=== PATIENT | male | born 2000 | race Caucasian/White ===

== ENCOUNTER 2021-06-21 04:03 | Emergency (ER) | payer OTHER ==
[2021-06-21] MEDS ORDERED: Ondansetron 4 MG/2 ML SDV IVPUSH ONE (04:26)
[2021-06-21] MEDS ORDERED: Dextrose 5%-Lactated Ringers 1,000 ML IV SCH (04:30)
[2021-06-21 05:09] LABS: BLOOD UREA NITROGEN,BUN 18 mg/dL (7.0-18.0); CARBON DIOXIDE,CO2 28.6 mmol/L (21.0-32.0); CHLORIDE,CL 101 mmol/L (98-107); GLUCOSE RANDOM 149 mg/dL (74-106); POTASSIUM,K 4.1 mmol/L (3.5-5.1); SODIUM,NA 137 mmol/L (136-148)
--- NOTE | 2021-06-21 05:18 | EDM.PDOC ---
ED HPI GENERAL MEDICAL PROBLEM - General Chief Complaint: Gastrointestinal Problem Stated Complaint: VOMITING Time Seen by Provider: 06/21/21 04:06 - History of Present Illness INITIAL COMMENTS - FREE TEXT/NARRATIVE: CHIEF COMPLAINT(S): Vomiting HISTORY OF PRESENT ILLNESS: This is a 20-year-old man without any significant past medical history who comes to the emergency department with a chief complaint of vomiting. Patient states that for approximately 4 to 5 hours now he has been experiencing vomiting which is nonbloody and nonbilious and diarrhea which is nonbloody and nonmelanotic after eating a burger at [email or web address]. He states that he started experience symptoms immediately after eating the burger approximately 15 to 20 minutes. He states that he is not able to keep any fluids down. He initially had some abdominal pain with vomiting but that is since improved. He denies any fever, chills, chest pain or shortness of breath. REVIEW OF SYSTEMS: Constitutional: Denies fever, chills. Eyes: Denies eye pain Ears, Nose, Mouth, & Throat: Denies earache Cardiovascular: Denies chest pain Respiratory: Denies shortness of breath Gastrointestinal: Positive for nausea, vomiting, diarrhea. Denies melena, hematochezia, hematemesis, bilious emesis, abdominal pain Genitourinary: Denies hematuria, dysuria Skin:Denies a rash MSK: Denies joint pain Neurological: Denies blurred vision Psychiatric: Denies depression PAST MEDICAL HISTORY: As per history of present illness and as reviewed below otherwise noncontributory. SURGICAL HISTORY: As per history of present illness and as reviewed below otherwise noncontributory. SOCIAL HISTORY: As per history of present illness and as reviewed below otherwise noncontributory. FAMILY HISTORY: As per history of present illness and as reviewed below otherwis e noncontributory. EXAMINATION OF ORGAN SYSTEMS/BODY AREAS: Constitutional: Blood pressure was 121/62, heart rate 120, respiratory rate 16 with an oxygen saturation 96% on room air. Temperature 36.8 General: Young man who does not appear to be in acute distress Psychiatric: Appropriate mood and affect. Eyes: No scleral icterus or conjunctival erythema ENMT: Dry mucous membranes. No pharyngeal erythema Cardiovascular: Regular, rate, and rhythm. No gallops, murmurs, or rubs. Bilateral upper extremity pulses symmetric and intact. No peripheral edema. No JVD. Respiratory: Lungs clear to auscultation bilaterally. No wheezes, rales, or rhonchi. Gastrointestinal: Soft, non-tender, non-distended. Normoactive bowel sounds no rebound or guarding Genitourinary: No suprapubic tenderness Musculoskeletal: Normal range of motion. Skin: No lesions or abrasions. Neurological: Alert, GCS 15 MEDICAL DECISION MAKING AND COURSE IN THE ED WITH INTERPRETATION/REVIEW OF DIAGNOSTIC STUDIES: This is a 20-year-old man without any significant past medical history who comes to the emergency department with dehydration secondary to food poisoning. At this time we will obtain basic labs including CBC, CMP and provide the patient with 1 L of D5 LR and 4 mg of IV Zofran. We will reevaluate for p.o. toleration. Laboratory: CBC reveals a mild leukocytosis of 11.39 otherwise unremarkable. CM P reveals hyperglycemia at 149 and hyperbilirubinemia at 1.2 otherwise unremarkable. After period of observation the patient was able to tolerate p.o. without any difficulty. I did discuss the importance of p.o. hydration at home. He is to return for any worsening symptoms. He was amenable to discharge and had no further questions DISPOSITION: The patient was discharged home in stable condition. The patient will follow up with primary care physician in 3 to 5 days CONDITION: Fair PROCEDURES: None FINAL IMPRESSION(S)/DIAGNOSES: 1. Acute vomiting secondary to food poisoning 2. Acute diarrhea secondary to food poisoning Keegan Mckeon M.D. - Related Data Allergies Allergy/AdvReac Type Severity Reaction Status Date / Time No Known Allergies Allergy Verified 06/21/21 04:17 Home Meds: Home Meds Finasteride 1 mg PO ASDIRECTED 06/21/21 [History] Ondansetron [Zofran ODT] 4 mg PO Q6H PRN #16 tab.dis 06/21/21 [Rx] Past Medical History - Past Health History Medical/Surgical History: Denies Medical/Surgical History - Infectious Disease History Infectious Disease History: Reports: Chicken Pox Social & Family History - Family History Family Medical History: No Pertinent Family History ED ROS GENERAL - Review of Systems Review Of Systems: See Below ED EXAM, GENERAL - Physical Exam Exam: See Below Course - Vital Signs Last Recorded V/S: Last Vital Signs Temp 36.8 C 06/21/21 04:18 Pulse 82 06/21/21 06:00 Resp 18 06/21/21 06:00 BP 111/52 L 06/21/21 06:00 Pulse Ox 100 06/21/21 06:00 - Orders/Labs/Meds Labs: Laboratory Tests 06/21/21 06/21/21 Range/Units 04:39 04:39 WBC 11.39 H (4.0-11.0) K/uL RBC 5.00 (4.50-5.90) M/uL Hgb 15.8 (13.0-17.0) g/dL Hct 44.3 (38.0-50.0) % MCV 88.6 (80.0-98.0) fL MCH 31.6 (27.0-32.0) pg MCHC 35.7 (31.0-37.0) g/dL RDW Std Deviation 41.3 (28.0-62.0) fl RDW Coeff of Edith 13 (11.0-15.0) % Plt Count 206 (150-400) K/uL MPV 9.90 (7.40-12.00) fL Neut % (Auto) 89.7 H (48.0-80.0) % Lymph % (Auto) 3.0 L (16.0-40.0) % [place] % (Auto) 7.1 (0.0-15.0) % Eos % (Auto) 0.1 (0.0-7.0) % Baso % (Auto) 0.1 (0.0-1.5) % Neut # (Auto) 10.2 H (1.4-5.7) K/uL Lymph # (Auto) 0.3 L (0.6-2.4) K/uL [place] # (Auto) 0.8 (0.0-0.8) K/uL Eos # (Auto) 0.0 (0.0-0.7) K/uL Baso # (Auto) 0.0 (0.0-0.1) K/uL Nucleated RBC % 0.0 /100WBC Nucleated RBCs # 0 K/uL Sodium 137 (136-148) mmol/L Potassium 4.1 (3.5-5.1) mmol/L Chloride 101 (98-107) mmol/L Carbon Dioxide 28.6 (21.0-32.0) mmol/L BUN 18 (7.0-18.0) mg/dL Creatinine 1.1 (0.8-1.3) mg/dL Est Cr Clr Drug Dosing TNP Estimated GFR (MDRD) > 60.0 ml/min Glucose 149 H (74-106) mg/dL Calcium 8.6 (8.5-10.1) mg/dL Total Bilirubin 1.2 H (0.2-1.0) mg/dL AST 17 (15-37) IU/L ALT 19 (14-63) IU/L Alkaline Phosphatase 67 (46-116) U/L Total Protein 7.6 (6.4-8.2) g/dL Albumin 4.1 (3.4-5.0) g/dL Globulin 3.5 (2.6-4.0) g/dL Albumin/Globulin Ratio 1.2 (0.9-1.6) Meds: Medications Discontinued Medications Generic Name Dose Route Start Last Admin Trade Name Freq PRN Reason Stop Dose Admin Dextrose/Lactated Ringer's 1,000 mls @ 999 mls/hr 06/21/21 04:30 06/21/21 04:36 Dextrose 5%-Lactated Ringers IV 999 mls/hr ASDIRECTED BINU Administration Ondansetron HCl 4 mg 06/21/21 04:26 06/21/21 04:36 Ondansetron 4 Mg/2 Ml Sdv IVPUSH 06/21/21 04:27 4 mg ONETIME ONE Administration Ondansetron HCl 4 mg 06/21/21 05:20 06/21/21 05:32 Ondansetron 4 Mg Tab.Dis PO 06/21/21 05:21 4 mg ONETIME ONE Administration Departure - Departure Time of Disposition: 05:17 Disposition: Home, Self-Care 01 Condition: Fair Clinical Impression: Food poisoning - Discharge Information *PRESCRIPTION DRUG MONITORING PROGRAM REVIEWED*: No *COPY OF PRESCRIPTION DRUG MONITORING REPORT IN PATIENT LEANN: No Prescriptions: Ondansetron [Zofran ODT] 4 mg PO Q6H PRN #16 tab.dis PRN Reason: Nausea/Vomiting Instructions: Food Poisoning, Diarrhea, Adult, [id number] Referrals: PCP,None [Primary Care Provider] - Forms: ED Department Discharge Additional Instructions: You were evaluated today on an emergent basis. At this time I do believe you experience food poisoning. Typically this only last 24 hours. I recommend you continue to use Zofran every 6 hours as needed for nausea relief. You can take up to 8 mg every 6 hours. It is important that you maintain hydration with Pedialyte, Gatorade and soup. The diarrhea will eventually resolve. If you have any blood in your stool I recommend you return to the emergency department or your primary care physician. Please return to the emergency department if you are unable to tolerate any fluids by mouth. Follow-up with primary care physician. [facility] [address] [place] [id number] [id number] The patient is informed of any results of their evaluation and diagnostic workup and all questions are answered. They are given discharge instructions and return precautions. The patient is stable for discharge. The patient states they understand and agree with the plan and that they will return if their symptoms get worse or if they have any new concerns. The following information is given to patients seen in the emergency department who are being discharged to home. This information is to outline your options for follow-up care. We provide all patients seen in our emergency department with a follow-up referral. The need for follow-up, as well as the timing and circumstances, are variable depending upon the specifics of your emergency department visit. If you don't have a primary care physician on staff, we will provide you with a referral. We always advise you to contact your personal physician following an emergency department visit to inform them of the circumstance of the visit and for follow-up with them and/or the need for any referrals to a consulting specialist. The emergency department will also refer you to a specialist when appropriate. This referral assures that you have the opportunity for follow-up care with a specialist. All of these measure are taken in an effort to provide you with optimal care, which includes your follow-up. Under all circumstances we always encourage you to contact your private physician who remains a resource for coordinating your care. When calling for follow-up care, please make the office aware that this follow-up is from your recent emergency room visit. If for any reason you are refused follow-up, please contact the [facility] Emergency Department at and asked to speak to the emergency department charge nurse. Sepsis Event Note (ED) - Evaluation Sepsis Screening Result: No Definite Risk - Focused Exam Vital Signs: Vital Signs Temp Pulse Resp BP Pulse Ox 06/21/21 06:00 82 18 111/52 L 100 06/21/21 04:18 36.8 C 120 H 16 121/62 96
[2021-06-21] MEDS ORDERED: Ondansetron 4 MG Tab.DIS PO ONE (05:20)
== END 2021-06-21 06:00 | disposition home or self-care (01) ==
LOC: MW.ED 04:03
DX: A05.9 Bacterial foodborne intoxication, unspecified (principal)
CPT/HCPCS: 36415; 80053; 85025; 96374; 99284; A9270; J2405; J7121